=== PATIENT | male | born 1995 | race African-American/Black ===

== ENCOUNTER 2018-11-20 10:43 | Emergency (ER) | payer SELFPAY ==
[2018-11-20] MEDS ORDERED: IBUPROFEN 800 MG TABLET PO ONE (11:40)
[2018-11-20] MEDS ORDERED: DEXAMETHASONE CONC 1 MG/ML SOLN PO ONE (11:40)
--- NOTE | 2018-11-20 11:43 | ER Document Report ---
ED General - General Chief Complaint: Sore Throat Stated Complaint: SORE THROAT Time Seen by Provider: 11/20/18 11:06 Primary Care Provider: [facility] [Provider Group] - Follow up as needed - HPI Notes: 23-year-old male to the emergency department with complaints of sore throat, bilateral ear pain, cough. Patient states the cough started last week and now his discomfort has localized in his throat and in his ears. States that every time he swallows he has ear pain. He states that he feels like he has difficulty swallowing. He denies any fevers, chills, chest pain, shortness of breath, drooling, voice change. He has been taking Chloraseptic spray without any relief. - Related Data Allergies/Adverse Reactions: No Known Allergies Allergy (Unverified 11/20/18 10:45) Past Medical History - General Information source: Patient - Social History Smoking Status: Never Smoker Chew tobacco use (# tins/day): Yes Frequency of alcohol use: None Drug Abuse: None Family History: Reviewed & Not Pertinent Patient has suicidal ideation: No Patient has homicidal ideation: No Renal/ Medical History: Denies: Hx Peritoneal Dialysis Past Surgical History: Reports: Hx Orthopedic Surgery - R hand Review of Systems - Review of Systems Constitutional: denies: Chills, Diaphoresis, Fever EENT: See HPI, Ear pain, Throat pain Cardiovascular: denies: Chest pain, Palpitations, Dyspnea, Syncope, Dizziness, Lightheaded Respiratory: Cough. denies: Short of breath Gastrointestinal: denies: Abdominal pain, Diarrhea, Nausea, Vomiting Genitourinary: No symptoms reported Male Genitourinary: No symptoms reported Musculoskeletal: No symptoms reported Skin: No symptoms reported Hematologic/Lymphatic: No symptoms reported Neurological/Psychological: No symptoms reported -: Yes All other systems reviewed and negative Physical Exam - Vital signs Vitals: Temp Pulse Resp BP Pulse Ox 98.1 F 96 18 153/87 H 96 11/20/18 10:47 11/20/18 10:47 11/20/18 10:47 11/20/18 10:47 11/20/18 10:47 Interpretation: Normal - General General appearance: Appears well, Alert In distress: None - HEENT Head: Normocephalic, Atraumatic Eyes: Normal Pupils: PERRL Ears: Normal External canal: Normal Tympanic membrane: Normal Sinus: Normal Nasal: Normal Mouth/Lips: Normal. No: Angioedema Mucous membranes: Normal Pharynx: Erythema, Tonsillar hypertrophy - 1+ bilateral tonsillar hypertrophy with no evidence of ben-tonsillar abscess. Patient is tolerating oral secretions well. He does not have a hot potato voice. He does not have evidence of ludwigs angina.. No: Exudate, Peritonsillar abscess, Post nasal drainage, Retropharyngeal abscess Neck: Normal, Supple. No: Anterior cervical chain, Lymphadenopathy, Meningismus - Respiratory Respiratory status: No respiratory distress Chest status: Nontender Breath sounds: Normal Chest palpation: Normal - Cardiovascular Rhythm: Regular Heart sounds: Normal auscultation Murmur: No - Neurological Neuro grossly intact: Yes Cognition: Normal Orientation: AAOx4 Kevin Coma Scale Eye Opening: Spontaneous [place] Coma Scale Verbal: Oriented Kevin Coma Scale Motor: Obeys Commands Kevin Coma Scale Total: 15 Speech: Normal Cranial nerves: Normal Cerebellar coordination: Normal Motor strength normal: LUE, RUE, LLE, RLE Sensory: Normal - Psychological Associated symptoms: Normal affect, Normal mood - Skin Skin Temperature: Warm Skin Moisture: Dry Skin Color: Normal Course - Re-evaluation Re-evalutation: 11/20/18 Impression: Viral pharyngitis, upper respiratory infection. We will send patient home with steroid Dosepak as well as cough medicine and Motrin. Gave Decadron here and Motrin. Noted negative rapid strep. Advised patient of result. Will discharge home. Patient agrees with the plan Laboratory 11/20/18 10:54 Group A Strep Rapid NEGATIVE - Vital Signs Vital signs: Temp Pulse Resp BP Pulse Ox 98.3 F 89 15 142/72 H 98 11/20/18 11:53 11/20/18 11:53 11/20/18 11:53 11/20/18 11:53 11/20/18 11:53 Discharge - Discharge Clinical Impression: Sore throat, Cough, Elevated blood pressure reading Pharyngitis Qualifiers: Pharyngitis/tonsillitis etiology: unspecified etiology Qualified Code(s): J02.9 - Acute pharyngitis, unspecified Condition: Stable Disposition: HOME, SELF-CARE Instructions: Sore Throat ([facility]), Urinary Tract Infection ([facility]) Additional Instructions: PUSH FLUIDS. REST. TAKE MEDICINE PRESCRIBED. RETURN IF WORSENING PAIN, DROOLING, INABILITY TO SWALLOWING, FEVERS, OR ANY OTHER CONCERNS. Prescriptions: Benzonatate [Tessalon Perle 100 mg Capsule] 100 mg PO Q8HP PRN #40 cap PRN Reason: Methylprednisolone [Medrol Dosepack (4 mg/Tab) 21 Tab/Dosepak] 4 mg PO ASDIR PRN #21 [id number] PRN Reason: Ibuprofen [Motrin 800 mg Tablet] 800 mg PO Q8H PRN #30 tab PRN Reason: Forms: Return to Work Referrals: [facility] [Provider Group] - Follow up as needed
[2018-11-20 11:54] VITALS: BP 142/72
== END 2018-11-20 11:54 | disposition home or self-care (01) ==
LOC: ER 10:43
DX: J02.9 Acute pharyngitis, unspecified (principal); R05 Cough; R03.0 Elevated blood-pressure reading, without diagnosis of hypertension; H92.03 Otalgia, bilateral; R13.10 Dysphagia, unspecified
CPT/HCPCS: 99283; 87070; 87880; 87077; J8540